=== PATIENT | male | born 1945 | race Asian ===

== ENCOUNTER 2021-05-17 08:15 | Day surgery (SDC) | payer MEDICARE, OTHER ==
[2021-05-14 10:49] LABS: COVID AG,FIA SOURCE NASOPHARYNGEAL
[~2021-05-17] VITALS: Ht 175.3 cm; Wt 109.0 kg
[~2021-05-17 08:15] MED LIST: ALBU8HFA IH; ASCO500 PO; CHOL-35 PO; FAMO40TA7 PO; FLUT16H NASAL; FLUT1BLS IH; MONT10TA32 PO; MULT-1366 PO; ROSU10TA72 PO; SODIUM CHLORIDE 0.9% 1,000 ML IV ONE; TRAZ-252 PO
[2021-05-17] MEDS ORDERED: EPINEPHrine 1:10,000 [1 MG/10 ML] SYRINGE IVP ONE (08:16)
[2021-05-17] MEDS ORDERED: BENZOCAINE 20% 50 MCG/SPRAY 57 GM TP ONE (08:16)
[2021-05-17] MEDS ORDERED: LIDOCAINE 2% 30 ML JELLY TP ONE (08:16)
[2021-05-17] MEDS ORDERED: FentaNYL CITRATE PF 100 MCG/2 ML VIAL ONE (09:28)
[2021-05-17] MEDS ORDERED: MIDAZOLAM HCL 5 MG/ML VIAL ONE (09:29)
[2021-05-17] MEDS ORDERED: MethylPREDNISolone SOD SUCC 125 MG/2 ML VIAL ONE (09:41)
[2021-05-17] MEDS ORDERED: MethylPREDNISolone SOD SUCC 125 MG/2 ML VIAL IVP ONE ×2 (10:15→10:30)
[2021-05-17] MEDS ORDERED: OXYGEN THERAPY IH SCH ×2 (20:00)
== END 2021-05-17 12:25 | disposition home or self-care (01) ==
LOC: SURGERY 08:15
PROVIDERS: ATTEND Internal Medicine Critical Care Medicine
DX: J38.4 Edema of larynx (principal); B37.0 Candidal stomatitis; F43.10 Post-traumatic stress disorder, unspecified; Z98.890 Other specified postprocedural states; Z90.5 Acquired absence of kidney; Z79.899 Other long term (current) drug therapy
CPT/HCPCS: 31623; 31624; 71045; 87015; 87070; 87101; 87205; 87206; 87220; 87426; 88108; 88184; 88185; 88312; C9803; J0171; J2250; J2930; J3010